=== PATIENT | female | born 1940 | race Caucasian/White ===

== ENCOUNTER → 2018-05-10 14:24 | Outpatient (BNVA) | payer MEDICARE, OTHER, SELFPAY | PROVIDERS: PCP Family Medicine; Referring Provider Nurse Practitioner Family; Visit Provider Nurse Practitioner Gerontology | DX: N39.41 Urge incontinence (principal) | CPT/HCPCS: 81003; 99204; 99215 ==

== ENCOUNTER 2018-06-12 10:00 | Outpatient (CLI) | payer MEDICARE, OTHER, SELFPAY ==
--- NOTE | 2018-06-12 09:58 | DI.RAD_ITS ---
SYMPTOMS/DIAGNOSIS: LOW BACK PAIN, ? STENOSIS LUMBAR SPINE: AP, lateral and bilateral oblique views of the lumbar spine were obtained. There are five lumbar-type vertebral bodies. There is normal alignment. No spondylolysis or spondylolisthesis is seen. There is mild disc space narrowing and endplate osteophytes at L1-L2. At L5-S1, there is a vacuum disc, and endplate osteophytes and sclerosis. There are degenerative changes of the facets seen at L4-5 and L5-S1. No acute fractures or subluxations are seen. IMPRESSION: Mild degenerative changes in the lumbar spine.
== END 2018-06-12 10:20 ==
PROVIDERS: PCP Family Medicine; Referring Provider Family Medicine; Visit Provider Student in an Organized Health Care Education/Training Program
DX: M54.5 Low back pain (principal); M51.37 Other intervertebral disc degeneration, lumbosacral region; T84.84XA Pain due to internal orthopedic prosthetic devices, implants and grafts, initial encounter; Z96.652 Presence of left artificial knee joint
CPT/HCPCS: 99204; 99214; 72110

== ENCOUNTER 2018-08-09 11:21 | Outpatient (CLI) | payer MEDICARE, OTHER, SELFPAY ==
--- NOTE | 2018-08-09 11:18 | DI.RAD_ITS ---
SYMPTOM/DIAGNOSIS: S/P LT TKA WITH PAIN LEFT KNEE: Three views. Comparison is made with 11/03/13. There are again seen post surgical changes of a left total knee replacement. No evidence of hardware failure is seen. The bones are intact and normally mineralized. There is an intramedullary elisabeth seen in the distal left femur. It is incompletely visualized. The soft tissues are unremarkable. IMPRESSION: Stable left TKR.
== END 2018-08-09 11:41 ==
PROVIDERS: PCP Family Medicine; Referring Provider Family Medicine; Visit Provider Student in an Organized Health Care Education/Training Program
DX: T84.84XD Pain due to internal orthopedic prosthetic devices, implants and grafts, subsequent encounter (principal); Z96.652 Presence of left artificial knee joint; M25.562 Pain in left knee
CPT/HCPCS: 73562; 99213; L1820

== ENCOUNTER 2018-09-15 00:37 | Outpatient (CLI) | payer MEDICARE, OTHER, SELFPAY ==
--- NOTE | 2018-09-15 10:50 | DI.NM_ITS ---
SYMPTOMS/DIAGNOSIS: PAINFUL LEFT TOTAL KNEE REPLACEMENT, T84.84XA, Z96.652, ? LOOSENING OF LEFT TKA THREE-PHASE BONE SCAN: The patient received 23.7 mCi of technetium 99m MDP and a three-phase bone scan of the left knee was obtained. Comparison x-ray is 08/09/18. There is normal radiotracer uptake in the kidneys and urinary bladder. There is a focus of increased radiotracer uptake at the anterolateral aspect of the left 4th rib. There are postsurgical changes of a left total knee replacement. No increased radiotracer uptake is seen on the first two phases in the region of the left knee. There do appear to be areas of increased radiotracer uptake in the left knee consistent with the left knee prosthesis. No findings are seen to suggest infection or loosening. There is mild symmetric increased radiotracer uptake in the shoulders, feet and wrist, which is likely degenerative. IMPRESSION: 1. No definite findings to suggest loosening or infection of the left total knee replacement. 2. Focus of increased radiotracer uptake in the upper left rib. This is nonspecific. X-ray of the left ribs should be considered for further evaluation.
== END 2018-09-15 00:57 ==
PROVIDERS: PCP Family Medicine
DX: T84.84XA Pain due to internal orthopedic prosthetic devices, implants and grafts, initial encounter (principal); Z96.652 Presence of left artificial knee joint; R93.7 Abnormal findings on diagnostic imaging of other parts of musculoskeletal system
CPT/HCPCS: 78315

== ENCOUNTER → 2018-09-27 12:44 | Outpatient (BNVA) | payer MEDICARE, OTHER, SELFPAY | PROVIDERS: PCP Family Medicine; Referring Provider Family Medicine; Visit Provider Student in an Organized Health Care Education/Training Program | DX: T84.84XD Pain due to internal orthopedic prosthetic devices, implants and grafts, subsequent encounter (principal); Z96.652 Presence of left artificial knee joint | CPT/HCPCS: 20610; 99213; J1040 ==

== ENCOUNTER → 2018-10-11 10:14 | Outpatient (BNVA) | payer MEDICARE, OTHER, SELFPAY | PROVIDERS: PCP Family Medicine; Referring Provider Family Medicine; Visit Provider Student in an Organized Health Care Education/Training Program | DX: Z96.652 Presence of left artificial knee joint (principal); T84.84XD Pain due to internal orthopedic prosthetic devices, implants and grafts, subsequent encounter | CPT/HCPCS: 99214 ==

== ENCOUNTER 2018-12-29 01:32 | Outpatient (CLI) | payer MEDICARE, OTHER, SELFPAY ==
--- NOTE | 2018-12-29 09:46 | DI.US_ITS ---
SYMPTOM/DIAGNOSIS: DYSFUNCTION OF VESTIBULAR SYSTEM, BILAT H81.93, SLURRED SPEECH, F47.81, DIZZINESS, VISUAL CHANGES, TINGLING, IMBALANCE, NUMBNESS LT LEG CAROTID ULTRASOUND: Routine examination was performed. There is mild calcific plaque seen on the right in the proximal internal carotid artery and bulb. No hemodynamically significant velocity elevations are seen on the right. The right vertebral artery is antegrade. On the left, there is moderate calcific plaque seen in the proximal internal carotid artery and carotid bulb. No hemodynamically significant velocity elevations are present on the left. The left vertebral artery is antegrade. IMPRESSION: No evidence of hemodynamically significant cervical carotid artery stenosis.
== END 2018-12-29 01:52 ==
PROVIDERS: PCP Family Medicine; Visit Provider Family Medicine
DX: R42 Dizziness and giddiness (principal); R47.81 Slurred speech; R26.89 Other abnormalities of gait and mobility; R20.0 Anesthesia of skin; R20.2 Paresthesia of skin; H81.93 Unspecified disorder of vestibular function, bilateral
CPT/HCPCS: 93880

== ENCOUNTER → 2019-03-26 09:56 | Outpatient (BNVA) | payer MEDICARE, OTHER, SELFPAY | PROVIDERS: PCP Family Medicine; Visit Provider Nurse Practitioner Gerontology | DX: R32 Unspecified urinary incontinence (principal); N32.81 Overactive bladder | CPT/HCPCS: 51798; 81003; 99213 ==

== ENCOUNTER 2019-03-30 16:14 | Outpatient (REF) | payer MEDICARE, OTHER, SELFPAY ==
[2019-03-30 18:53] LABS: HCT 41.4 % (36.0-46.0); HGB 13.6 g/dL (12.0-15.5); Mean Corp. HGB Concentration 32.9 g/dL (32.0-36.0); Mean Corpuscular Hemoglobin 30.7 pg (27.0-33.0); Mean Corpuscular Volume 93.5 fL (80-95); Mean Platelet Volume 10.2 fL (8.0-11.0); Platelet Count 340 x1000/uL (130-400); RBC 4.43 m/cumm (4.00-5.20); RBC Distribution Width 14.1 % (11.7-14.6); White Blood Cell Count 9.55 k/cumm (4.4-10.8)
[2019-03-30 19:09] LABS: ALT 25 U/L (14-59); AST 17 U/L (15-37); Albumin 3.7 g/dL (3.4-5.0); Alkaline Phosphatase 108 U/L (46-116); Anion Gap 8.5 mmol/L (3-11); BUN 14 mg/dL (7-18); Bilirubin, Total 0.1 mg/dL (0.2-1.0); CO2 26.5 mmol/L (21.0-32.0); CREATININE 0.66 mg/dL (0.55-1.02); Calcium 8.8 mg/dL (8.5-10.1); Chloride 106 mmol/L (98-107); Glucose 96 mg/dL (70-100); Potassium 4.6 mmol/L (3.5-5.1); Sodium 141 mmol/L (136-145); TSH (W/Ref FT4) 0.82 uIU/mL (0.36-3.74); Total Protein 7.1 g/dL (6.4-8.2)
== END 2019-03-30 16:34 ==
LOC: NCHCN 16:14
PROVIDERS: PCP Family Medicine; Visit Provider Family Medicine
DX: R23.8 Other skin changes (principal); M54.5 Low back pain; N32.81 Overactive bladder; M81.0 Age-related osteoporosis without current pathological fracture
CPT/HCPCS: 80053; 85027; 84443

== ENCOUNTER → 2019-06-04 10:18 | Outpatient (BNVA) | payer MEDICARE, OTHER, SELFPAY | PROVIDERS: PCP Family Medicine; Referring Provider Family Medicine; Visit Provider Nurse Practitioner Gerontology | DX: R32 Unspecified urinary incontinence (principal) | CPT/HCPCS: 51798; 99213 ==

== ENCOUNTER 2019-10-04 08:37 | Outpatient (CLI) | payer MEDICARE, OTHER, SELFPAY ==
--- NOTE | 2019-10-04 06:00 | DI.RAD_ITS ---
EXAM: XR PAIN CLINIC FLUORO JOINT IN CLINICAL HISTORY: Dx: Knee Osteoarthritis, LT GENICULAR NERVE BLOCK TECHNIQUE: Realtime digital imaging was performed. CONTRAST MATERIAL: Water soluble contrast was administered. COMPARISON: No exams were available for comparison FINDINGS: Fluoroscopy was utilized by Dr. Chicas during the performance of a left genicular nerve block. Please refer to the procedure report for complete details. Fluoro time: 40 seconds DATA REPOSITORY: RADIATION DOSE DELIVERED:
[2019-10-04 08:40] VITALS: BP 118/64; PULSE 78; RESP 18; TEMP 37.1; O2SAT 95
[2019-10-04 09:20] VITALS: PULSE 83; RESP 12; O2SAT 96
--- NOTE | 2019-10-04 09:22 | PDOC.PAIN_ITS ---
Pain Clinic Procedure Note Procedure Note Procedure Note: LEFT GENICULAR NERVE BLOCK Date of Service: October 04, 2019 Patient: RENATE BARNES Provider: Greg Chicas DO, MPH Pre-operative diagnosis: Left knee osteoarthritis Post-operative diagnosis: Left knee osteoarthritis COMMENTS: Pre-procedure VAS to the LEFT knee is 8/10. I did review her evaluation notes with Ms. Alfaro from 09/24/19. RENATE BARNES has been referred [facility] the [facility] for LEFT genicular nerve block. RENATE was interviewed and the medical record reviewed. There were no medical, pharmacologic, radiographic or other structural contraindications to attempting fluoroscopically guided LEFT genicular nerve block. Risks and potential side effects as well as potential benefit of the procedure were reviewed with RENATE , and HER voiced concerns were addressed. After I believed that the patient was completely informed, the printed consent form was signed. Standard time-out procedure was performed. RENATE was placed in the supine position on the fluoroscopy table and automated blood pressure cuff and pulse oximeter applied. The skin entry points for approaching LEFT superolateral genicular nerve, the superomedial genicular nerve and the inferomedial genicular was identified under the most advantageous fluoroscopic view and marked. Following thorough Chlorhexadine preparation of the skin and draping, 1% lidocaine infiltration of the skin entry point and subcutaneous tissues was accomplished using a 1.5 25G needle. Next, the 3.5 25G spinal needle was advanced to os at the location of the specific nerve root using fluoroscopic guidance. Next, 1 cc of 1% Lidocaine was injected at each site. The needles were removed without difficulty. RENATE's vital signs were stable throughout the procedure and were as recorded in the docflowsheet by the nursing staff. If given, dosages of intravenous drugs for anxiolysis and analgesia were documented in MAR. Follow up plans and appointments were discussed with the RENATE . Post procedure instruction was given as documented in nursing documentation and having met discharge criteria, RENATE was discharged from the [facility]. COMMENTS: No complications. Post-procedure VAS to the LEFT knee is 4/10. The patient will keep track of her LEFT knee pain over the next four hours. If RENATE has sufficient pain relief, RENATE will be a candidate for radiofrequency ablation at the same nerves. Abraham WJ1, Esther SJ, Alexis SanchezG, Krissy SanchezG, Anthony AG, Ghazala PH, Mitchel JW. Radiofrequency treatment relieves chronic knee osteoarthritis pain: a double-blind randomized controlled trial. Pain. 2011 Sep;152(3):481-7. doi: 10.1016/j.pain.2010.09.029. Alicia S1, Matthew ON2, Louann Y3, ?zl?lermiriam P2, Rk U1, Tony ?m?rl? I. Which one is more effective for the clinical treatment of chronic pain in knee osteoarthritis: radiofrequency neurotomy of the genicular nerves or intra- articular injection? Int J Rheum Dis. 2016 Mar 12. F/U with our office by phone to give us the 1-4 hour post-procedure pain log scores for the left knee. I personally performed this entire procedure. Greg Chicas DO, MPH ABP[employer] - Subspecialty Board Certification in Pain Medicine Attending Physician
[2019-10-04] MEDS: Omnipaque 240 MG/ML 50 ML BTL IJ (09:29)
[2019-10-04] MEDS: Bupivacaine 0.5% Pres-Free 10 ML VIAL IJ (09:29)
== END 2019-10-04 08:57 ==
PROVIDERS: PCP Family Medicine; Visit Provider Preventive Medicine Occupational Medicine
DX: M17.12 Unilateral primary osteoarthritis, left knee (principal)
CPT/HCPCS: 64640; 77002; Q9967

== ENCOUNTER → 2020-02-11 09:51 | Outpatient (BNVA) | payer MEDICARE, OTHER, SELFPAY | PROVIDERS: PCP Family Medicine; Referring Provider Family Medicine; Visit Provider Nurse Practitioner Gerontology | DX: R35.0 Frequency of micturition (principal); R32 Unspecified urinary incontinence | CPT/HCPCS: 99213 ==

== ENCOUNTER 2020-06-05 09:30 | Outpatient (CLI) | payer MEDICARE, OTHER, SELFPAY ==
--- NOTE | 2020-06-05 06:00 | DI.RAD_ITS ---
EXAM: XR PAIN CLINIC FLUORO JOINT IN CLINICAL HISTORY: Dx:Osteoarthritis of left knee TECHNIQUE: 2D and realtime digital imaging was performed. CONTRAST MATERIAL: Refer to procedure report. COMPARISON: No exams were available for comparison FINDINGS: Fluoroscopy was provided for Dr. Chicas during the performance of a left geniculate radiofrequency abl ation. Please refer to the procedure report for complete details. Fluoro time: 75.5 seconds IMPRESSION:
[2020-06-05 09:37] VITALS: BP 111/59; PULSE 71; RESP 16; TEMP 37.1; O2SAT 95
[2020-06-05] MEDS: Lactated Ringers 1,000 ML 80 ML IV (10:39)
[2020-06-05] MEDS: Midazolam 2 MG/2 ML VIAL IVP (10:46)
[2020-06-05] MEDS: fentaNYL 100 MCG/2 ML VIAL IVP (10:46)
[2020-06-05 11:15] VITALS: BP 142/70; PULSE 67; RESP 20; O2SAT 97
--- NOTE | 2020-06-05 11:20 | PDOC.PAIN_ITS ---
Pain Clinic Procedure Note Procedure Note Procedure Note: {RIGHT / LEFT:29299} GENICULAR NERVE RADIOFREQUENCY ABLATION WITH THE COOLIEF MACHINE Date of Service: June 05, 2020 Patient: RENATE BARNES Provider: Greg Chicas DO, MPH Pre-operative diagnosis: Left knee osteoarthritis Post-operative diagnosis: Same COMMENTS: Previous Genicular nerve blocks to the LEFT knee. RENATE BARNES has been referred to the [facility] for LEFT genicular nerve radiofrequency ablation. RENATE was interviewed and the medical record reviewed. There were no medical, pharmacologic, radiographic or other structural contraindications to attempting fluoroscopically guided LEFT genicular nerve radiofrequency ablation. Risks and potential side effects as well as potential benefit of the procedure were reviewed with RENATE BARNES , and HER voiced concerns were addressed. After I believed that the patient was completely informed, the printed consent form was signed. Standard time-out procedure was performed. RENATE was placed in the supine position on the fluoroscopy table and automated blood pressure cuff and pulse oximeter applied. The skin entry points for approaching LEFT superolateral genicular nerve, the suprapatellar genicular nerve, the superomedial genicular nerve and the inferomedial genicular was identified under the most advantageous fluoroscopic view and marked. Following thorough Chlorhexadine preparation of the skin and draping, 1% lidocaine infiltration of the skin entry point and subcutaneous tissues was accomplished using a 1.5 25G needle. Next, the 10 cm 18G RF Cannula with a 10 mm active tip was advanced to os at the location of the specific nerve roots (3) using fluoroscopic guidance. Next, sensory and motor testing was performed and no abnormal findings were found. Next, 1 cc of 2% Lidocaine was injected at each site. The lesion was then created with 80 degrees C for 90 seconds. Each needle was advance 1 cm and the lesion was completed again. Each cannula was advanced until the tip reached the posterior aspect of the bone shaft. 1/4 cc of Depomedrol (40 mg/cc) was then injected at each site followed by 2 cc of 0.5% Bupivacaine as the needle was withdrawn. The needles were removed without difficulty. RENATE's vital signs were stable throughout the procedure and were as recorded in the docflowsheet by the nursing staff. If given, dosages of intravenous drugs for anxiolysis and analgesia were documented in MAR. Follow up plans and appointments were discussed with the RENATE BARNES . Post procedure instruction was given as documented in nursing documentation and having met discharge criteria, RENATE was discharged from the [facility]. COMMENTS: No complications. Abraham WJ1, Esther SJ, Alexis JG, Krissy SanchezG, Anthony AG, Ghazala PH, Mitchel JW. Radiofrequency treatment relieves chronic knee osteoarthritis pain: a double-blind randomized controlled trial. Pain. 2010;152(3):481-7. doi: 10.1016/j.pain.2010.09.029. Alicia S1, Matthew ON2, Louann Y3, ?zl?lerden P2, Rk U1, Tony ?m?rl? I. Which one is more effective for the clinical treatment of chronic pain in knee osteoarthritis: radiofrequency neurotomy of the genicular nerves or intra- articular injection? Int J Rheum Dis. 2016 Mar 12. F/U with our office as needed. I personally performed this entire procedure. Greg Chicas DO, MPH ABP[employer] - Subspecialty Board Certification in Pain Medicine Attending Physician
[2020-06-05] MEDS: Bupivacaine 0.5% Pres-Free 10 ML VIAL IJ (11:48)
[2020-06-05] MEDS: methylPREDNISolone ACETATE 40 MG/ML VIAL IJ (11:48)
[2020-06-05] MEDS: Lidocaine 2% Pres-Free 5 ML VIAL IJ (11:48)
== END 2020-06-05 09:50 ==
PROVIDERS: PCP Family Medicine; Visit Provider Preventive Medicine Occupational Medicine
DX: M17.12 Unilateral primary osteoarthritis, left knee (principal); M25.562 Pain in left knee
CPT/HCPCS: 64624; 77002; J1030; J2250; J3010

== ENCOUNTER → 2020-06-24 09:59 | Outpatient (BNVA) | payer MEDICARE, OTHER, SELFPAY | PROVIDERS: PCP Family Medicine; Referring Provider Family Medicine; Visit Provider Nurse Practitioner Gerontology | DX: R30.0 Dysuria (principal); R32 Unspecified urinary incontinence | CPT/HCPCS: 99213 ==

== ENCOUNTER → 2020-07-17 14:19 | Outpatient (BNVA) | payer MEDICARE, OTHER, SELFPAY | PROVIDERS: PCP Family Medicine; Referring Provider Family Medicine; Visit Provider Nurse Practitioner Gerontology | DX: N39.498 Other specified urinary incontinence (principal) | CPT/HCPCS: 81003; 99213 ==

== ENCOUNTER → 2021-01-01 15:14 | Outpatient (BNVA) | payer MEDICARE, OTHER, SELFPAY | PROVIDERS: PCP Family Medicine; Referring Provider Family Medicine; Visit Provider Nurse Practitioner Gerontology | DX: R35.0 Frequency of micturition (principal); R32 Unspecified urinary incontinence; Z79.899 Other long term (current) drug therapy | CPT/HCPCS: 99214 ==

== ENCOUNTER 2021-01-08 20:36 | Outpatient (REF) | payer MEDICARE, OTHER, SELFPAY ==
[2021-01-08 21:57] LABS: Bilirubin Negative (Negative); Blood Negative (Negative); Clarity Clear (Clear); Glucose Negative (Negative); Ketones Negative (Negative); Leukocyte Esterase Negative (Negative); Nitrite Negative (Negative); Specific Gravity 1.025 (1.005-1.025); Urobilinogen 0.2 EU/dL (Up TO 0.2)
== END 2021-01-08 20:37 | disposition home or self-care (01) ==
LOC: LBN 20:36
PROVIDERS: PCP Family Medicine; Visit Provider Nurse Practitioner Gerontology
DX: N39.3 Stress incontinence (female) (male) (principal); R35.0 Frequency of micturition
CPT/HCPCS: 81003; 87086

== ENCOUNTER → 2021-03-30 11:57 | Outpatient (BNVA) | payer MEDICARE, OTHER, SELFPAY | PROVIDERS: PCP Family Medicine; Referring Provider Family Medicine; Visit Provider Urology | DX: R69 Illness, unspecified (principal) ==

== ENCOUNTER 2021-03-31 14:37 | Outpatient (REF) | payer MEDICARE, OTHER, SELFPAY | END 2021-03-31 14:38 | disposition home or self-care (01) | LOC: LBN 14:37 | PROVIDERS: PCP Family Medicine; Visit Provider Urology | DX: N39.46 Mixed incontinence (principal) | CPT/HCPCS: 87086 ==

== ENCOUNTER 2021-05-06 01:30 | Outpatient (CLI) | payer MEDICARE, OTHER, SELFPAY ==
--- NOTE | 2021-05-06 07:30 | DI.US_ITS ---
Exam(s) US PELVIS TRANSVAGINAL EXAM: US PELVIS TRANSVAGINAL CLINICAL HISTORY: pelvic pressure and pain,R10.2. TECHNIQUE: Transabdominal and transvaginal pelvic ultrasound was performed using standard protocol. COMPARISON: MR MRI LUMBAR WO from 06/19/2018 MR MRI LUMBAR WO from 06/19/2018 FINDINGS: KIDNEYS: Kidneys are symmetric in size. No evidence of renal calculi. No evidence of hydronephrosis. There is a 2.5 x 2.0 x 2.5 cm simple cyst in the superior pole of the left kidney. This is stable co mpared to the MRI of the lumbar spine from 06/19/2018. No follow-up is recommended. UTERUS: Position: Anteverted. Size: 4.2 long by 2.1 AP by 2.9 transverse cm Endometrium: Less than 0.3 cm. There is a small amount of fluid seen within the endometrial canal. Myometrium: Unremarkable. Cervix: Unremarkable. OVARIES: Right: 1.6 x 1.1 x 1.5 cm Cyst or mass: None. Left: 1.4 x 0.7 x 1.5 cm Cyst or mass: None. CUL-DE-SAC: Free fluid: None. Other: None. IMPRESSION: 1. Normal sonographic appearance of the kidneys. 2. Small amount of fluid seen within the endometrial canal. Otherwise unremarkable uterus. 3. Unremarkable bilateral ovaries. DATA REPOSITORY:
== END 2021-05-06 01:50 ==
PROVIDERS: PCP Family Medicine; Visit Provider Obstetrics & Gynecology Gynecology
DX: R10.2 Pelvic and perineal pain (principal)
CPT/HCPCS: 76830; 76856

== ENCOUNTER 2021-08-25 21:07 | Outpatient (REF) | payer MEDICARE, OTHER, SELFPAY ==
[2021-08-25 21:55] LABS: Abs Immature Grans 0.01 10^3/uL (0.0-0.06); Absolute Basophil Count 0.08 10^3/uL (0.0-0.2); Absolute Lymphocyte Count 2.64 10^3/uL (1.2-3.4); Absolute Monocyte Count 0.61 10^3/uL (0.1-0.8); Absolute Neutrophil Count 3.48 10^3/uL (1.2-6.7); Basophils % 1.1; Eosinophils % 8.1; HCT 42.8 % (36.0-46.0); HGB 13.5 g/dL (11.2-15.7); Immature Grans % 0.1; Lymphocytes % 35.6; MCH 30.3 pg (27.0-33.0); MCHC 31.5 % (32.0-36.0); MPV 10.4 fL (8.0-11.0); Monocytes % 8.2; Neutrophils % 46.9; Nucleated RBC 0 %; Platelet Count 309 10^3/uL (130-400); RBC 4.46 10^6/uL (3.93-5.22); RDW 14.3 % (11.7-14.6); RDW-SD 50.5 fL; WBC 7.42 10^3/uL (4.4-10.8)
[2021-08-25 22:14] LABS: ALT 18 U/L (14-59); AST 15 U/L (15-37); Albumin 3.7 g/dL (3.4-5.0); Alkaline Phosphatase 79 U/L (46-116); Anion Gap 9.1 mmol/L (3-11); BUN 12 mg/dL (7-18); Bilirubin, Total 0.3 mg/dL (0.2-1.0); CO2 26.9 mmol/L (21.0-32.0); CREATININE 0.7 mg/dL (0.55-1.02); Chloride 106 mmol/L (98-107); Glucose 80 mg/dL (74-106); Potassium 4.8 mmol/L (3.5-5.1); Sodium 142 mmol/L (136-145); Total Protein 7.1 g/dL (6.4-8.2)
== END 2021-08-25 21:08 | disposition home or self-care (01) ==
LOC: LBN 21:07
PROVIDERS: PCP Family Medicine; Visit Provider Internal Medicine Rheumatology
DX: Z79.899 Other long term (current) drug therapy (principal)
CPT/HCPCS: 80053; 85025

== ENCOUNTER 2021-11-26 19:26 | Outpatient (REF) | payer MEDICARE, OTHER, SELFPAY ==
[2021-11-28 10:30] LABS: COVID-19 RT-PCR UVMMC Result Negative (Negative)
== END 2021-11-26 19:27 | disposition home or self-care (01) ==
LOC: LBN 19:26
PROVIDERS: PCP Family Medicine; Visit Provider Physician Assistant Medical
DX: Z20.822 Contact with and (suspected) exposure to COVID-19 (principal); R09.89 Other specified symptoms and signs involving the circulatory and respiratory systems
CPT/HCPCS: U0003; U0005

== ENCOUNTER 2022-02-09 10:53 | Emergency (ER) | payer MEDICARE, OTHER, SELFPAY ==
[2022-02-09 11:09] VITALS: BP 124/47; PULSE 71; RESP 18; TEMP 36.4; O2SAT 94
--- NOTE | 2022-02-09 12:30 | DI.CT_ITS ---
Exam(s) CT LUMBAR SPINE WO EXAM: CT LUMBAR SPINE WO CLINICAL HISTORY: fall pain. TECHNIQUE: Imaging Protocol: Axial computed tomography images with coronal and sagittal reformatted images were created and reviewed. COMPARISON: CR XR lumbar spine complete from 06/12/2018 MR MRI LUMBAR WO from 06/19/2018 FINDINGS: Bones: There is an acute nondisplaced fracture involving the left sacral ala. The fracture does not appear to extend into the sacroiliac joint. No other acute fracture or subluxation is seen. There i s an old L4 vertebral body fracture with vertebroplasty. The bones are osteopenic. No spondylolysis or spondylolisthesis is seen. Mild degenerative changes are seen throughout the lumbar spine. Ther e is an orthopedic screw incompletely visualized in the left femur. Soft tissues: Emphysematous changes are seen in the lung bases. There is a stable left renal cyst. This was present on an MRI of the lumbar spine from 06/19/2018. No large disk herniations are identif ied. IMPRESSION: 1. Acute nondisplaced fracture of the left sacral ala. 2. Results of this exam have been verbally communicated with provider. RADIATION DOSE DELIVERED: 583.98mGy.cm Total DLP 583.98mGy.cm Total DLP DATA REPOSITORY: All CT scans at this facility are submitted to the National Radiology Data Registry (NRDR) Dose Index Registry (DIR) with the [employer] ([employer]). RADIATION OPTIMIZATION: All CT scans at this facility use at least one of these dose optimization te chniques: automated exposure control; mA and/or kV adjustment per patient size (includes targeted exa ms where dose is matched to clinical indication); or iterative reconstruction.
--- NOTE | 2022-02-09 12:30 | DI.RAD_ITS ---
Exam(s) XR PELVIS AP XR FEMUR LT EXAM: XR PELVIS AP and XR femur LT CLINICAL HISTORY: left pelvis and leg pain post fall. TECHNIQUE: 2D digital imaging was performed. Five images were obtained. COMPARISON: CT ABD PELVIS WITH CONTRAST from 04/10/2012 CR XR lumbar spine complete from 06/12/2018 FINDINGS: BONES: There is an acute nondisplaced fracture involving the left inferior pubic ramus. There is an intramedullary elisabeth and screw in the proximal left femur. The patient has a left total knee replaceme nt which is incompletely imaged. No bony destructive lesion is seen. JOINTS: No dislocation present. No joint space narrowing is present. SOFT TISSUE: Normal. IMPRESSION: 1. Nondisplaced acute fracture involving the left inferior pubic ramus. 2. Results of this exam have been verbally communicated with provider. DATA REPOSITORY: RADIATION DOSE DELIVERED:
[2022-02-09] MEDS: oxyCODONE 5 MG TAB PO (12:42)
--- NOTE | 2022-02-09 14:30 | ED.GENADUL_ITS ---
Discharge Plan Disposition Patient Disposition: HOME Condition: Stable Discharge Details Clinical Impression: Closed fracture of pubic ramus, Fracture of sacrum Primary Care Provider: Warren Yadav ED Provider: Tereza Bonds Home Meds and New Rx's Prescriptions: New oxycodone 5 mg capsule 5 mg PO Q8H PRNQty: 10 0RF Continued clonazepam 0.5 mg tablet 0.5 mg PO DAILY PRN Label Comments: pt reports taking daily (1 tab) tolterodine [Detrol LA] 4 mg capsule,extended release 24hr 4 mg PO DAILY Qty: 60 6RF alendronate 70 mg Tablet See Rx Instructions .ROUTE .COMPLEX Label Comments: Once weekly Rx Instructions: 70 mg orally ondansetron HCl 4 mg Tablet 4 mg PO Q6H PRN trazodone 150 mg Tablet 150 mg PO HS duloxetine 60 mg Capsule,Delayed Release(Dr/Ec) 60 mg PO DAILY calcium carbonate [Calcium 500] 500 mg calcium (1,250 mg) tablet 1,000 mg PO DAILY cholecalciferol (vitamin D3) 125 mcg (5,000 unit) tablet 5,000 unit PO DAILY Label Comments: pt unsure of dose simvastatin 20 mg tablet 20 mg PO DAILY omeprazole 20 MG capsule,delayed release(DR/EC) 20 mg PO QAM Label Comments: 07/19/17 PCP RECORD STATES 20 MG BID. ascorbic acid (vitamin C) [Vitamin C] 500 mg tablet 500 mg PO DAILY PRN Discharge Instructions Additional Instructions: Use a walker with ambulation Take the oxycodone sparingly, this medication is addictive and will make you constipated follow-up with pcp this week tylenol 650 mg every 4 hours return earlier with new or worsening complaints Referrals: Warren Yadav [Primary Care Provider] - Discharge Data Discharge Date/Time-TO BE ENTERED AT DEPARTURE: 02/09/22 15:55 Medical Decision Making sacral ala fracture and inferior pubic ramus fx lumbar spine CT without acute abnormality per radiology interpretation discussed with Dr. Naidu Ambulatory with antalgic but steady gait, walker knee brace, hinged placed left knee pain secondary to baseline instability with prior surgery Case reviewed with Dr. Mcdaniel, weightbearing with walker Return precautions discussed and patient expressed understanding pain medications with risk of addiction reviewed Discharged home in the care of her , patient feels comfortable discharge home at this Medical Records Medical records reviewed: Yes I reviewed the patient's medical records. HPI General Date/Time Provider Initiated Documentation: 02/09/22 11:01 . HPI Narrative: this 82 you female with hx of femur fx and osteoporosis present s/p slip and fall in bathroom just captain room service. states has pain in her left hip and pelvis. denies any additional injuries. took tylenol captain room service without relief. denies sensation changes. reports mechanical fall. Related Data Home Medications Medication Instructions Recorded Confirmed omeprazole 20 mg capsule,delayed 20 mg PO QAM 06/20/13 01/21/22 release alendronate 70 mg tablet See Rx Instructions .Route .COMPLEX 09/14/19 01/21/22 duloxetine 60 mg capsule,delayed 60 mg PO DAILY 09/14/19 01/21/22 release ondansetron HCl 4 mg tablet 4 mg PO Q6H PRN 09/14/19 01/21/22 trazodone 150 mg tablet 150 mg PO HS 09/14/19 01/21/22 ascorbic acid (vitamin C) 500 mg 500 mg PO DAILY PRN 05/15/21 01/21/22 tablet (Vitamin C) calcium carbonate 500 mg calcium 1,000 mg PO DAILY 05/15/21 01/21/22 (1,250 mg) tablet (Calcium 500) cholecalciferol (vitamin D3) 125 5,000 unit PO DAILY 05/15/21 01/21/22 mcg (5,000 unit) tablet clonazepam 0.5 mg tablet 0.5 mg PO DAILY PRN 05/15/21 01/21/22 simvastatin 20 mg tablet 20 mg PO DAILY 05/15/21 01/21/22 tolterodine 4 mg capsule,extended 4 mg PO DAILY #60 caps 05/15/21 01/21/22 release 24 hr (Detrol LA) oxycodone 5 mg capsule 5 mg PO Q8H PRN #10 caps 02/09/22 Previous Rx's Medication Instructions Recorded tolterodine 4 mg capsule,extended 4 mg PO DAILY #60 caps 05/15/21 release 24 hr (Detrol LA) oxycodone 5 mg capsule 5 mg PO Q8H PRN #10 caps 02/09/22 Allergies Allergy/AdvReac Type Severity Reaction Status Date / Time azithromycin Allergy Severe Verified 01/21/22 14:08 fluoxetine HCl [From Prozac] Allergy Intermediate Skin Rash Verified 01/21/22 14:08 tramadol Allergy Intermediate Skin Rash Verified 01/21/22 14:08 ciprofloxacin [From Cipro] Allergy Mild Verified 01/21/22 14:08 ciprofloxacin HCl AdvReac Intermediate Diarrhea Verified 01/21/22 14:08 [From Cipro] codeine AdvReac Intermediate GI UPSET Verified 01/21/22 14:08 metaxalone [From Skelaxin] AdvReac Intermediate GI UPSET Verified 01/21/22 14:08 Metronidazole HCl AdvReac Intermediate Diarrhea Verified 01/21/22 14:08 [From Flagyl] pregabalin [From Lyrica] AdvReac Intermediate FOGGY BRAIN Verified 01/21/22 14:08 propranolol HCl AdvReac Intermediate VOMITING Verified 01/21/22 14:08 [From Inderal LA] venlafaxine HCl AdvReac Intermediate GI UPSET Verified 01/21/22 14:08 [From Effexor] gabapentin [From Neurontin] AdvReac Mild SLEEPY Verified 01/21/22 14:08 ibuprofen AdvReac Mild heart burn Verified 01/21/22 14:08 SAVILLA Allergy Mild Bad Uncoded 01/21/22 14:08 headaches General Stated Complaint: Orthopedic RYNE: 3 Review of Systems All systems reviewed & are unremarkable except as noted in HPI and below PFSH All Active Problems (Updated 02/09/22 @ 15:26 by PAULINE Levy) Closed fracture of pubic ramus (Acute) Fracture of sacrum (Acute) Urinary urgency (Acute) improvement in sx with 2mg Detrol LA. 05/26/21. Will increased dose to 4mg/day Pelvic pressure in female (Acute) Sensation of fullness in right ear (Acute) Vertigo (Acute) Referred otalgia of right ear (Acute) Painful total knee replacement, left (Acute) Urinary incontinence (Acute) 04/2021. improved with Detrol LA. Stomach problems (Acute 02/07/15) Sensorineural hearing loss, bilateral (Acute 10/04/16) Osteoporosis (Acute 07/10/15) Lumbar T Score - 3.1, Hip T- Score -2.6 Mood disorder (Acute 02/07/15) Hyperlipidemia (Acute 02/07/15) Female stress incontinence (Acute 02/10/16) daily mild sx. Disequilibrium (Acute 10/04/16) Chronic joint pain (Acute 02/07/15) Fibromyalgia (Chronic) GERD (gastroesophageal reflux disease) (Chronic) Mostly controlled with Omeprazole with rare antacid use. Hyperlipidemia (Chronic) Sleep disturbance (Chronic) Uses Trazodone nightly. Encounter for rehabilitation (Acute 09/07/13) Medical History (Updated 02/09/22 @ 15:26 by PAULINE Levy) Actinic keratosis Acute bilateral low back pain Age related osteoporosis 2014 Lumbar spine T score - 3.1. Total hip - 2.6 Anxiety associated with depression Arthritis Bilateral thumb pain Chronic joint pain no imoprovement with Gabapentin or Lyrica. PCP manages Hydrocodone Rx. [place] [facility] [place] [facility] [place] Chronic left SI joint pain DDD (degenerative disc disease) Dry eye syndrome Easy bruising Female stress incontinence mild daily sx. Hearing loss, bilateral Hiatal hernia Hyperlipidemia Stopped Simvistatin Lumbar back pain Mood disorder Trazadone for sleep, Zoloft and Clonazepam Overactive bladder Palpitations Panic disorder Pes anserinus bursitis Slurred speech Spinal stenosis Stomach problems takes PPI Swelling of left hand Thoracic back pain Tinea corporis Tinnitus, bilateral Trochanteric bursitis Vitamin D deficiency Weakness of both legs Surgical History Arthroplasty of knee (08/23/13) L knee arthroscopy. Colonoscopy - IV Sedation 2011 with endoscopy Excision, Neuroma 2004 L foot. 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 [place] Female Reproductive History Menstrual Menopause type: natural History History 1 Para 0 Hx # Term Pregnancies Multiple births Hx # Pregnancies Ectopic pregnancies AB induced Hx Number of Living Children AB spontaneous Exam Const General: cooperative, comfortable and no acute distress Orientation: alert and oriented x3 HENMT Head: normal to inspection and no palpable skull fracture Mouth: oral mucosae normal Eyes Pupils: PERRL Neck Other: No midline tenderness Resp Effort & Inspection: normal respiratory effort Cardio Rate: regular rate Rhythm: regular rhythm GI Inspection: normal to inspection Other: Nontender abdominal exam Skin General skin exam: no rashes or lesions noted Full body images: 1. Tenderness with palpation, no visible signs of trauma Neuro General: patient alert and patient oriented x3 Other: Strength and sensation intact Extrem Other: Distal pulses intact Course Vital Signs Vital signs: Vital Signs Temperature 36.4 C L 02/09/22 11:09 Pulse 71 02/09/22 11:09 Respiratory Rate 18 02/09/22 11:09 Blood Pressure 124/47 L 02/09/22 11:09 Pulse Oximetry 94 02/09/22 11:09 Temperature 36.4 C L 02/09/22 11:09 Temperature Source Temporal Artery Scan 02/09/22 11:09 Pulse 71 02/09/22 11:09 Respiratory Rate 18 02/09/22 11:09 Respiratory Effort Non-Labored 02/09/22 12:27 Blood Pressure 124/47 L 02/09/22 11:09 Blood Pressure Position Sitting 02/09/22 11:09 Pulse Oximetry 94 02/09/22 11:09 Oxygen Delivery Method Room Air 02/09/22 11:09 Oxygen Flow Rate 0 02/09/22 11:09
[2022-02-09 16:02] VITALS: BP 131/66; PULSE 76; RESP 18; TEMP 36.8; O2SAT 92
== END 2022-02-09 15:55 | disposition home or self-care (01) ==
PROVIDERS: Emergency Provider Physician Assistant; PCP Family Medicine
DX: S32.592A Other specified fracture of left pubis, initial encounter for closed fracture (principal); S32.10XA Unspecified fracture of sacrum, initial encounter for closed fracture; Z87.891 Personal history of nicotine dependence; W01.0XXA Fall on same level from slipping, tripping and stumbling without subsequent striking against object, initial encounter; Y92.89 Other specified places as the place of occurrence of the external cause
CPT/HCPCS: 73552; 99284; 72131; 72170

== ENCOUNTER 2022-03-24 16:33 | Outpatient (REF) | payer MEDICARE, OTHER, SELFPAY | END 2022-03-24 16:34 | disposition home or self-care (01) | LOC: LBN 16:33 | PROVIDERS: PCP Family Medicine; Visit Provider Obstetrics & Gynecology Gynecology | DX: R30.0 Dysuria (principal) | CPT/HCPCS: 87077; 87086; 87186 ==

== ENCOUNTER 2022-04-29 17:18 | Outpatient (REF) | payer MEDICARE, OTHER, SELFPAY | END 2022-04-29 17:19 | disposition home or self-care (01) | LOC: LBN 17:18 | PROVIDERS: PCP Family Medicine; Visit Provider Obstetrics & Gynecology Gynecology | DX: N39.3 Stress incontinence (female) (male) (principal); R39.15 Urgency of urination; Z87.440 Personal history of urinary (tract) infections | CPT/HCPCS: 87086 ==

== ENCOUNTER → 2022-06-29 12:37 | Outpatient (BNVA) | payer MEDICARE, OTHER, SELFPAY | PROVIDERS: PCP Family Medicine; Referring Provider Family Medicine; Visit Provider Urology | DX: N39.41 Urge incontinence (principal); Z87.440 Personal history of urinary (tract) infections | CPT/HCPCS: 99214 ==

== ENCOUNTER → 2023-02-07 12:48 | Outpatient (BNVA) | payer MEDICARE, SELFPAY | PROVIDERS: PCP Family Medicine; Referring Provider Family Medicine; Visit Provider Nurse Practitioner Gerontology | DX: R39.15 Urgency of urination (principal); N39.3 Stress incontinence (female) (male) | CPT/HCPCS: 81003; 99213 ==

== ENCOUNTER 2023-02-07 13:50 | Outpatient (REF) | payer MEDICARE, SELFPAY | END 2023-02-07 13:51 | disposition home or self-care (01) | LOC: LBN 13:50 | PROVIDERS: PCP Family Medicine; Visit Provider Nurse Practitioner Gerontology | DX: R82.998 Other abnormal findings in urine (principal); N39.3 Stress incontinence (female) (male); Z87.440 Personal history of urinary (tract) infections | CPT/HCPCS: 87077; 87086; 87186 ==

== ENCOUNTER 2023-03-07 10:49 | Outpatient (REF) | payer MEDICARE, SELFPAY ==
[2023-03-07 10:28] LABS: Bilirubin Negative (Negative); Blood Negative (Negative); Clarity Clear (Clear); Glucose Negative (Negative); Ketones Negative (Negative); Leukocyte Esterase Negative (Negative); Nitrite Negative (Negative); Urobilinogen 0.2 mg/dL (Up to 0.2); pH 6.5 (5-8)
== END 2023-03-07 10:50 | disposition home or self-care (01) ==
LOC: LBN 10:49
PROVIDERS: PCP Family Medicine; Visit Provider Nurse Practitioner Gerontology
DX: N39.3 Stress incontinence (female) (male) (principal); Z87.440 Personal history of urinary (tract) infections
CPT/HCPCS: 81003; 87086

== ENCOUNTER → 2023-03-22 15:22 | Outpatient (BNVA) | payer MEDICARE, SELFPAY | PROVIDERS: PCP Family Medicine; Referring Provider Family Medicine; Visit Provider Urology | DX: N39.41 Urge incontinence (principal) | CPT/HCPCS: 99214 ==

== ENCOUNTER → 2023-05-02 12:52 | Outpatient (BNVA) | payer MEDICARE, SELFPAY | PROVIDERS: PCP Family Medicine; Referring Provider Family Medicine; Visit Provider Student in an Organized Health Care Education/Training Program | DX: J98.4 Other disorders of lung (principal); Z87.891 Personal history of nicotine dependence | CPT/HCPCS: 99205; 99215 ==

== ENCOUNTER → 2023-05-25 09:30 | Outpatient (BNVA) | payer MEDICARE, SELFPAY | PROVIDERS: PCP Family Medicine; Referring Provider Family Medicine; Visit Provider Nurse Practitioner Gerontology | DX: R39.15 Urgency of urination (principal); Z87.440 Personal history of urinary (tract) infections | CPT/HCPCS: 99442 ==

== ENCOUNTER 2023-06-30 08:01 | Day surgery (SDC) | payer MEDICARE, SELFPAY ==
--- NOTE | 2023-06-30 08:12 | W.PM.HP.N ---
Date of service: 06/30/23 Time of Service: 08:20 Assessment and Plan Assessment and plan (1) Urinary incontinence: Status: Acute Qualifiers: Urinary Incontinence type: urge incontinence Qualified Code(s): N39.41 - Urge incontinence (2) Urinary urgency: Status: Acute Assessment and plan: This patient has urinary incontinence related to an overactive bladder. She presents for cystoscopy with an injection of Botox into the detrusor muscle. History of Present Illness History of Present Illness Chief Complaint: Urgency incontinence due to overactive bladder Narrative: This is an 83-year-old woman who has a history of mixed urinary incontinence. She has failed medical management with anticholinergics and beta 3 agonists. She has not had any neuromodulation to date. She is bothered by urinary frequency, urgency and urgency incontinence. Her mobility is compromised and she describes falls when she tries to get to the restroom. She does have some leakage when she coughs or sneezes, but she tells me this is a minor component of her leakage. Review of Systems Narrative: No fevers or chills Meniere's disease. Decreased hearing acuity. No diabetes or thyroid dysfunction No shortness of breath, cough or hemoptysis No chest pain or palpitations GERD. No hepatitis, ulcers, jaundice No seizures, strokes or peripheral neuropathy No bleeding disorders or anemia Chronic pain. No gout PFSH All Active Problems Diplopia (Acute) Imbalance (Acute) Cystic-bullous disease of lung (Acute) Chronic pain syndrome (Chronic) Vaginitis and vulvovaginitis (Acute) Hx: UTI (urinary tract infection) (Acute) 05/03/22. Daily suppression with antibiotic not effective. Menieres disease (Acute) Dysuria (Acute) Urinary urgency (Acute) improvement in sx with 2mg Detrol LA. 05/26/21. Will increased dose to 4mg/day Pelvic pressure in female (Acute) Sensation of fullness in right ear (Acute) Vertigo (Acute) Referred otalgia of right ear (Acute) Painful total knee replacement, left (Acute) Urinary incontinence (Acute) 04/2021. improved with Detrol LA. Stomach problems (Acute 02/07/15) Sensorineural hearing loss, bilateral (Acute 10/04/16) Osteoporosis (Acute 07/10/15) Lumbar T Score - 3.1, Hip T- Score -2.6 Mood disorder (Acute 02/07/15) Hyperlipidemia (Acute 02/07/15) Female stress incontinence (Acute 02/10/16) 2016 daily mild sx. 05/2022. frequent daily urine loss also unprovoked Disequilibrium (Acute 10/04/16) Chronic joint pain (Acute 02/07/15) Encounter for rehabilitation (Acute 09/07/13) Sleep disturbance (Chronic) Uses Trazodone nightly. Hyperlipidemia (Chronic) GERD (gastroesophageal reflux disease) (Chronic) Mostly controlled with Omeprazole with rare antacid use. Fibromyalgia (Chronic) Medical History Vestibular dysfunction Insomnia Hypokalemia Prediabetes Seasonal allergic rhinitis History of TB skin testing Constipation Common peroneal neuropathy Dry mouth Lymphangioleiomyomatosis Lung nodule Anxiety associated with depression Hiatal hernia Spinal stenosis Trochanteric bursitis Vitamin D deficiency Tinea corporis Lumbar back pain Dry eye syndrome Panic disorder Hearing loss, bilateral Tinnitus, bilateral DDD (degenerative disc disease) Thoracic back pain Chronic left SI joint pain Weakness of both legs Palpitations pt. denies Slurred speech Arthritis Actinic keratosis Swelling of left hand Pes anserinus bursitis Bilateral thumb pain Acute bilateral low back pain Overactive bladder Easy bruising Chronic joint pain no imoprovement with Gabapentin or Lyrica. PCP manages Hydrocodone Rx. [place] [facility] [place] Mood disorder Trazadone for sleep, Zoloft and Clonazepam Hyperlipidemia Stopped Simvistatin Age related osteoporosis 2015 Lumbar spine T score - 3.1. Total hip - 2.6 Female stress incontinence mild daily sx. Stomach problems takes PPI Surgical History History of tonsillectomy and adenoidectomy piriformis release 2002 Replacement of total knee joint (09/03/13) left Rotator Cuff Repair 2006 Excision, Neuroma 2004 L foot. Colonoscopy - IV Sedation 2011 with endoscopy Arthroplasty of knee (08/23/13) L knee arthroscopy. 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 What type of physical activity do you participate in: additional Details: needs rolling walker to assist her with ambulation Special julianna needs: No Do you feel safe at home: Yes Do you feel safe in your relationship?: Yes Female Reproductive History Menstrual Menopause type: natural History History 1 Para 0 Hx # Term Pregnancies Multiple births Hx # Pregnancies Ectopic pregnancies AB induced Hx Number of Living Children AB spontaneous Meds Allergies and Home Medications Allergies Allergy/AdvReac Type Severity Reaction Status Date / Time azithromycin Allergy Severe unknown Verified 06/30/23 08:09 fluoxetine HCl [From Prozac] Allergy Intermediate Skin Rash Verified 06/30/23 08:09 tramadol Allergy Intermediate Skin Rash Verified 06/30/23 08:09 ciprofloxacin [From Cipro] Allergy Mild unknown Verified 06/30/23 08:09 cephalexin [From Keflex] Allergy reported Verified 06/30/23 08:09 by her pharmacy ciprofloxacin HCl AdvReac Intermediate Diarrhea Verified 06/30/23 08:09 [From Cipro] codeine AdvReac Intermediate GI UPSET Verified 06/30/23 08:09 metaxalone [From Skelaxin] AdvReac Intermediate GI UPSET Verified 06/30/23 08:09 Metronidazole HCl AdvReac Intermediate Diarrhea Verified 06/30/23 08:09 [From Flagyl] pregabalin [From Lyrica] AdvReac Intermediate FOGGY BRAIN Verified 06/30/23 08:09 propranolol HCl AdvReac Intermediate VOMITING Verified 06/30/23 08:09 [From Inderal LA] venlafaxine HCl AdvReac Intermediate GI UPSET Verified 06/30/23 08:09 [From Effexor] gabapentin [From Neurontin] AdvReac Mild SLEEPY Verified 06/30/23 08:09 ibuprofen AdvReac Mild heart burn Verified 06/30/23 08:09 sulfamethoxazole AdvReac nausea, Verified 06/30/23 08:09 [From Bactrim] vomiting, diarrhea trimethoprim [From Bactrim] AdvReac nausea, Verified 06/30/23 08:09 vomiting, diarrhea SAVILLA Allergy Mild Bad Uncoded 06/30/23 08:09 headaches Home Medications Medication Instructions Recorded Confirmed Type omeprazole 20 mg capsule,delayed 20 mg PO QAM 06/20/13 06/30/23 History release alendronate 70 mg tablet See Rx Instructions .Route .COMPLEX 09/14/19 06/30/23 History duloxetine 60 mg capsule,delayed 60 mg PO DAILY 09/14/19 06/30/23 History release ondansetron HCl 4 mg tablet 4 mg PO Q6H PRN 09/14/19 06/30/23 History calcium carbonate 500 mg calcium 1,000 mg PO DAILY 05/15/21 06/30/23 History (1,250 mg) tablet (Calcium 500) cholecalciferol (vitamin D3) 125 5,000 unit PO DAILY 05/15/21 06/30/23 History mcg (5,000 unit) tablet clonazepam 0.5 mg tablet 0.5 mg PO DAILY PRN 05/15/21 06/30/23 History simvastatin 20 mg tablet 20 mg PO DAILY 05/15/21 06/30/23 History prochlorperazine maleate 5 mg 5 mg PO TID PRN 04/21/22 06/30/23 History tablet (Compazine) meclizine 12.5 mg tablet 12.5 mg PO TID PRN 11/18/22 06/30/23 History sennosides 8.6 mg tablet (Senna 8.6 mg PO BID 11/18/22 06/30/23 History Laxative) diclofenac sodium 1 % topical gel 4 g topical QID PRN 03/23/23 06/30/23 History cyanocobalamin (vitamin B-12) 1 tab PO DAILY 04/20/23 06/30/23 History trazodone 150 mg tablet 75 mg PO QHS 04/26/23 06/30/23 History turmeric PO 05/02/23 05/04/23 History Exam Const General: cooperative Limitations: physical limitations (in wheelchair) Neck Neck: supple Resp Effort & Inspection: normal respiratory effort Auscultation: clear to auscultation bilaterally Cardio Rate: regular rate Rhythm: regular rhythm GI Palpation: soft and no masses Neuro General: patient alert, patient awake and patient oriented x3 Time Spent Time spent with Patient: <40 minutes Time was spent: other
[2023-06-30 08:36] VITALS: BP 116/44; PULSE 84; RESP 16; TEMP 36.5; O2SAT 96
--- NOTE | 2023-06-30 08:42 | W.ANESPRE ---
General Info Date of Service Date Performed: 06/30/23 Height: 5 ft 6 in Weight: 65.317 kg Body Mass Index (BMI): 23.2 Surgical Procedure: Operation Date: 06/30/23 09:10 Proposed Procedure Side Surgeon p Cystoscopy/ Transurethral Injection of Botox Dane Gaines MD Meds Allergies and Home Medications Allergies Allergy/AdvReac Type Severity Reaction Status Date / Time azithromycin Allergy Severe unknown Verified 06/30/23 08:09 fluoxetine HCl [From Prozac] Allergy Intermediate Skin Rash Verified 06/30/23 08:09 tramadol Allergy Intermediate Skin Rash Verified 06/30/23 08:09 ciprofloxacin [From Cipro] Allergy Mild unknown Verified 06/30/23 08:09 cephalexin [From Keflex] Allergy reported Verified 06/30/23 08:09 by her pharmacy ciprofloxacin HCl AdvReac Intermediate Diarrhea Verified 06/30/23 08:09 [From Cipro] codeine AdvReac Intermediate GI UPSET Verified 06/30/23 08:09 metaxalone [From Skelaxin] AdvReac Intermediate GI UPSET Verified 06/30/23 08:09 Metronidazole HCl AdvReac Intermediate Diarrhea Verified 06/30/23 08:09 [From Flagyl] pregabalin [From Lyrica] AdvReac Intermediate FOGGY BRAIN Verified 06/30/23 08:09 propranolol HCl AdvReac Intermediate VOMITING Verified 06/30/23 08:09 [From Inderal LA] venlafaxine HCl AdvReac Intermediate GI UPSET Verified 06/30/23 08:09 [From Effexor] gabapentin [From Neurontin] AdvReac Mild SLEEPY Verified 06/30/23 08:09 ibuprofen AdvReac Mild heart burn Verified 06/30/23 08:09 sulfamethoxazole AdvReac nausea, Verified 06/30/23 08:09 [From Bactrim] vomiting, diarrhea trimethoprim [From Bactrim] AdvReac nausea, Verified 06/30/23 08:09 vomiting, diarrhea SAVILLA Allergy Mild Bad Uncoded 06/30/23 08:09 headaches Home Medication Medication Instructions Recorded omeprazole 20 mg capsule,delayed 20 mg PO QAM 06/20/13 release alendronate 70 mg tablet See Rx Instructions .Route .COMPLEX 09/14/19 duloxetine 60 mg capsule,delayed 60 mg PO DAILY 09/14/19 release ondansetron HCl 4 mg tablet 4 mg PO Q6H PRN 09/14/19 calcium carbonate 500 mg calcium 1,000 mg PO DAILY 05/15/21 (1,250 mg) tablet (Calcium 500) cholecalciferol (vitamin D3) 125 5,000 unit PO DAILY 05/15/21 mcg (5,000 unit) tablet clonazepam 0.5 mg tablet 0.5 mg PO DAILY PRN 05/15/21 simvastatin 20 mg tablet 20 mg PO DAILY 05/15/21 prochlorperazine maleate 5 mg 5 mg PO TID PRN 04/21/22 tablet (Compazine) meclizine 12.5 mg tablet 12.5 mg PO TID PRN 11/18/22 sennosides 8.6 mg tablet (Senna 8.6 mg PO BID 11/18/22 Laxative) diclofenac sodium 1 % topical gel 4 g topical QID PRN 03/23/23 cyanocobalamin (vitamin B-12) 1 tab PO DAILY 04/20/23 trazodone 150 mg tablet 75 mg PO QHS 04/26/23 turmeric PO 05/02/23 Current Visit Medications: Current Medications Generic Name Dose Route Start Last Admin Trade Name Freq PRN Reason Stop Dose Admin Clindamycin HCl 300 mg 06/30/23 06:00 Clindamycin 300 Mg Cap PO 06/30/23 23:59 [facility] OnabotulinumtoxinA 100 units/ 0 units 06/30/23 06:00 Sodium Chloride 20 ml IJ 06/30/23 23:59 ONCE AYESHA Ringer's Solution 1,000 mls @ 80 mls/hr 06/30/23 06:00 IV 06/30/23 23:59 [facility] IV Miscellaneous Supplies 1 each 06/30/23 06:00 Iv Access IV 06/30/23 23:59 DIRECTED AYESHA Sodium Chloride 0 ml 06/30/23 06:00 Normal Saline Flush 10 Ml Syr IV 06/30/23 23:59 PRN PRN Sodium Chloride 0 ml 06/30/23 06:00 Normal Saline 10 Ml Vial IJ 06/30/23 23:59 DIRECTED PRN Sterile Water 0 ml 06/30/23 06:00 Water,Injection,Sterile 10 Ml Vial IJ 06/30/23 23:59 DIRECTED PRN PFSH Active Problems Active Problems: Problem Status Onset Code Diplopia H53.2 Imbalance R26.89 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 Chronic pain syndrome G89.4 Vaginitis and vulvovaginitis N76.0 Hx: UTI (urinary tract infection) Z87.440 Menieres disease H81.09 Dysuria R30.0 Urinary urgency R39.15 Pelvic pressure in female R10.2 Sensation of fullness in right ear H93.8X1 Vertigo R42 Referred otalgia of right ear H92.01 Painful total knee replacement, left T84.84XA, Z96.652 Urinary incontinence R32 Stomach problems 02/07/15 K31.9 Sensorineural hearing loss, bilateral 10/04/16 H90.3 Osteoporosis 07/10/15 M81.0 Mood disorder 02/07/15 F39 Hyperlipidemia 02/07/15 E78.5 Female stress incontinence 02/10/16 N39.3 Disequilibrium 10/04/16 R42 Chronic joint pain 02/07/15 M25.50, G89.29 Encounter for rehabilitation 09/07/13 Z51.89 Sleep disturbance G47.9 Hyperlipidemia E78.5 GERD (gastroesophageal reflux disease) K21.9 Fibromyalgia M79.7 Medical History Medical History Vestibular dysfunction Insomnia Hypokalemia Prediabetes Seasonal allergic rhinitis History of TB skin testing Constipation Common peroneal neuropathy Dry mouth Lymphangioleiomyomatosis Lung nodule Anxiety associated with depression Hiatal hernia Spinal stenosis Trochanteric bursitis Vitamin D deficiency Tinea corporis Lumbar back pain Dry eye syndrome Panic disorder Hearing loss, bilateral Tinnitus, bilateral DDD (degenerative disc disease) Thoracic back pain Chronic left SI joint pain Weakness of both legs Palpitations pt. denies Slurred speech Arthritis Actinic keratosis Swelling of left hand Pes anserinus bursitis Bilateral thumb pain Acute bilateral low back pain Overactive bladder Easy bruising Chronic joint pain no imoprovement with Gabapentin or Lyrica. PCP manages Hydrocodone Rx. COX2 inhibitor at [facility] [place] [facility] 2014 Mood disorder Trazadone for sleep, Zoloft and Clonazepam Hyperlipidemia Stopped Simvistatin Age related osteoporosis 2015 Lumbar spine T score - 3.1. Total hip - 2.6 Female stress incontinence mild daily sx. Stomach problems takes PPI Surgical History Surgical History History of tonsillectomy and adenoidectomy piriformis release 2001 Replacement of total knee joint (09/03/13) left Rotator Cuff Repair 2006 Excision, Neuroma 2004 L foot. Colonoscopy - IV Sedation 2011 with endoscopy Arthroplasty of knee (08/23/13) L knee arthroscopy. Tobacco Smoking/Tobacco Use Status: Former Tobacco Use Alcohol Alcohol Intake: former Substance Use Substance use: Never Substance use type: does not use Prental History History 1 Para 0 Hx # Term Pregnancies Multiple births Hx # Pregnancies Ectopic pregnancies AB induced Hx Number of Living Children AB spontaneous Vital Signs and Lab Results Lab Results Blood Type / Crossmatch: No Data to Display Complete Blood Count: No Data to Display Complete Metabolic Panel: No Data to Display Liver Function Panel: No Data to Display Coagulation Panel: No Data to Display Cardiac Panel: No Data to Display Arterial Blood Gas: No Data to Display Venous Blood Gas: No Data to Display Pancreas Panel: No Data to Display Thyroid Panel: No Data to Display Infectious Disease: No Data to Display Blood Cultures: No Data to Display Toxicology Panel: No Data to Display Imaging and Studies Imaging and Studies Study information below may be from another EMR and interpreted by another provider. Please see original notes in EMR for more complete details. Carotid Artery Summary:: 12/17: no sig stenosis. Anesthesia Assessment and Plan Anesthesia History Personal History: No History of Anesthesia Complications Family History: No Family History of Anesthesia Complications Exercise Tolerance Exercise Tolerance: Metabolic Equivalents>4 Cardiac & Pulmonary Exam Cardiac Exam: Normal S1/S2 Heart Sounds Pulmonary Exam: Clear Bilateral Breath Sounds Implantable Cardiac Device Does patient have a Pacemaker or an ICD?: No Airway Exam Known Difficult Airway: No Mallampati Class: 4 Mouth Opening: Narrow (< 3cm) Thyromental Distance: Less than 3 cm Neck Range of Motion: Limited ROM Neck Circumference: Normal Teeth Condition: Edentulous ASA Classification ASA Score: ASA 2 Emergency Case?: No NPO Status NPO Status: NPO Clears >2 hours, Solids >8 hours Anesthesia Plan Resuscitation Status: Full Code Anesthesia Technique: General Anesthesia Airway Planned: Natural Airway Monitors Used: Standard Monitors Preoperative Comments:: 83 yo female for cysto/botox. Sig PMHx: GERD (omeprazole, well controlled), vertigo (always), fibromyalgia, spinal stenosis, lung nodules. former smoker,
[2023-06-30 08:46] VITALS: BMI 23.2
--- NOTE | 2023-06-30 08:46 | W.PM.DSUDISC ---
Date of service: 06/30/23 Time of Service: 09:39 Discharge Plan Disposition Patient Disposition: Home Condition: Stable Discharge Details Reason For Visit: cystoscopy with Botox injection Attending Provider: Dane Gaines Primary Care Provider: Warren Yadav Roberts Meds and New Rx's Prescriptions: No Action turmeric PO clonazepam 0.5 mg tablet 0.5 mg PO DAILY PRN Patient Comments: pt reports taking daily (1 tab) alendronate 70 mg Tablet See Rx Instructions .ROUTE .COMPLEX Patient Comments: Once weekly Rx Instructions: 70 mg orally ondansetron HCl 4 mg Tablet 4 mg PO Q6H PRN duloxetine 60 mg Capsule,Delayed Release(Dr/Ec) 60 mg PO DAILY calcium carbonate [Calcium 500] 500 mg calcium (1,250 mg) tablet 1,000 mg PO DAILY cholecalciferol (vitamin D3) 125 mcg (5,000 unit) tablet 5,000 unit PO DAILY Patient Comments: pt unsure of dose simvastatin 20 mg tablet 20 mg PO DAILY prochlorperazine maleate [Compazine] 5 mg tablet 5 mg PO TID PRN meclizine 12.5 mg tablet 12.5 mg PO TID PRN sennosides [Senna Laxative] 8.6 mg tablet 8.6 mg PO BID diclofenac sodium 1 % gel 4 g topical QID PRN trazodone 150 mg tablet 75 mg PO QHS omeprazole 20 MG capsule,delayed release(DR/EC) 20 mg PO QAM Patient Comments: 07/19/17 PCP RECORD STATES 20 MG BID. cyanocobalamin (vitamin B-12) Tablet,Chewable 1 tab PO DAILY Discharge Instructions Additional Instructions: do not be surprised if you see blood in the urine for the next 2 or 3 days. ask patient to call with a progress report in @ 1 week followup appt (either in person or telehealth) in @ 5 months Stand Alone Forms: Anesthesia Discharge Inst., Sj Crouch (DSU) Activity:: Activity as Tolerated Shower/Bathe:: 24 hours Diet:: As Tolerated Discharge Orders Discharge Orders: Discharge Order (Routine); Ordered 06/30/23 Ordered By: Dane Gaines DS: Diagnosis Discharge Diagnosis (1) Urinary incontinence: Status: Acute (2) Urinary urgency: Status: Acute
[2023-06-30 08:51] LABS: Bilirubin Negative (Negative); Blood Moderate (Negative); Clarity Cloudy (Clear); Glucose Negative (Negative); Ketones Negative (Negative); Leukocyte Esterase Moderate (Negative); Nitrite Positive (Negative); Specific Gravity >= 1.030 (1.005-1.025); Urobilinogen 0.2 mg/dL (Up to 0.2); pH 6.5 (5-8)
[2023-06-30 08:58] LABS: C & S Indicated? Yes; WBC >50 HPF (0-5)
[2023-06-30] MEDS: Lactated Ringers 1,000 ML 80 ML IV (08:59)
[2023-06-30] MEDS: Clindamycin 300 MG CAP PO (09:06)
[2023-06-30] MEDS: BOTULINUM TOXIN TYPE A 100 UNITS, Normal Saline 20 ML IJ (09:28)
[2023-06-30] MEDS: Lidocaine 2% Jelly 6 ML SYR (09:28)
[2023-06-30 09:47] VITALS: BP 108/50; PULSE 70; RESP 16; TEMP 36.4; O2SAT 97
[2023-06-30 09:50] VITALS: BP 108/50; PULSE 70; RESP 16; TEMP 36.4; O2SAT 97
--- NOTE | 2023-06-30 09:53 | W.PM.OP ---
Date of service: 06/30/23 Time of Service: 09:53 Operative Note Operative Note DATE OF PROCEDURE: 06/30/23 PRE-OP DIAGNOSIS: Urinary incontinence due to overactive bladder POST-OP DIAGNOSIS: same PROCEDURE: cystoscopy with transurethral injection of Botox into detrusor muscle SURGEON: Dane Gaines ANESTHESIA TYPE: Local By Surgeon and General:No Airway Refer to Anesthesia Record ESTIMATED BLOOD LOSS: 10 PATHOLOGY: none sent COMPLICATIONS: None Patient was transported to: same day Patient's condition: stable Implants: 100 units Botox Indications: This is an 83 year old woman who has a long history of mixed urinary incontinence. Her biggest complaint is urinary uregency, frequency and urgency incontinence. She has failed oral anticholinergics and beta 3 agonists. she presents for a Botox injection. She has a history of recurrent UTIs. Her prior cultures have grown E Coli. She was prophylaxed at with an antibiotic to cover E. coli and a urine culture was sent today. We will adjust her antibiotic coverage once her final C&S is available. Findings: bladder mucosa erythematous with several small diverticuli Procedure Description: The patient was brought to the operating room on 06/30/2023. She was given a single dose of oral antibiotic. Her pretreatment urinalysis was suspicious for a urinary tract infection, so a culture and sensitivity was sent. She was given general anesthesia without intubation and placed in the dorsal lithotomy position. Her genitalia was prepped and draped. 2% Xylocaine jelly was instilled into the urethra to act as a local anesthetic. A 20 Macedonian urethrotome sheath was passed through the urethra into the bladder. The bladder was inspected with the 30 degree lens. The lateral bladder mucosa appeared erythematous. Her bladder capacity seems small. There were multiple small diverticuli present. We then performed transurethral injection of Botox into the detrusor muscle. We used a solution of 100 units mixed and 20 mL of saline. We injected 1 mL in 20 different locations in the bladder. We injected on the posterior bladder wall and used the grid of 5 injection sites horizontally and 4 injection sites vertically. The bladder was then emptied and the scope was removed. The patient tolerated the procedure well with no complications.
[2023-06-30] MEDS: Phenazopyridine 200 MG TAB PO (10:00)
[2023-06-30] MEDS: clonazePAM 0.5 MG TAB PO (10:00)
--- NOTE | 2023-06-30 10:32 | W.ANESPOSTOP ---
Postoperative Evaluation Date, Time and Location Date Performed: 06/30/23 Time Performed: 10:32 Patient Location: Day Surgery Unit Vital Signs Most Recent Imported Vital Signs: Most Recent Vital Signs Temp Pulse Resp BP Pulse Ox 36.4 C L 70 16 108/50 L 97 06/30/23 09:50 06/30/23 09:50 06/30/23 09:50 06/30/23 09:50 06/30/23 09:50 Pain Score Most Recent Pain Score: Most Recent Pain Score Pain Level 4 06/30/23 09:50 Assessment Mental Status: Awake (Alert & Oriented to Patient Baseline) Airway and Respiratory Function: Patent airway with normal (patient baseline) respiratory exam Cardiovascular Function: Hemodynamically Stable Hydration Status: Adequately Hydrated Nausea & Vomiting: No Nausea or Vomiting Pain: Pt. Denies Any Pain Peripheral Nerve Block: Patient did not receive a nerve block
[2023-06-30 11:13] VITALS: BP 113/36; PULSE 67; RESP 16; TEMP 36.4; O2SAT 97
== END 2023-06-30 08:02 | disposition home or self-care (01) ==
PROVIDERS: PCP Family Medicine; Visit Provider Urology
PROC: (CPT 52287; principal; 2023-06-30 09:00)
DX: N32.81 Overactive bladder (principal); N39.41 Urge incontinence; R35.0 Frequency of micturition
CPT/HCPCS: 52287; 87077; 81003; 81015; 87086; 87186; J0585; J2405

== ENCOUNTER → 2023-07-18 11:10 | Outpatient (BNVA) | payer MEDICARE, SELFPAY | PROVIDERS: PCP Family Medicine; Referring Provider Family Medicine; Visit Provider Nurse Practitioner Gerontology | DX: N39.41 Urge incontinence (principal); R30.0 Dysuria | CPT/HCPCS: 99442 ==

== ENCOUNTER → 2023-08-08 13:01 | Outpatient (BNVA) | payer MEDICARE, SELFPAY | PROVIDERS: PCP Family Medicine; Referring Provider Family Medicine; Visit Provider Physician Assistant Surgical | DX: J98.4 Other disorders of lung (principal) | CPT/HCPCS: 99214 ==

== ENCOUNTER 2023-08-19 15:25 | Outpatient (REF) | payer MEDICARE, SELFPAY ==
--- NOTE | 2023-08-19 13:42 | SKI_PTH ---
PATIENT: Evelyn Anaya LOC: [facility] U#:[id number] AGE/SX: 83/F ROOM: RE08/19/[address]: Warren Yadav : 1940 BED: DIS: 08/19/2023 SPEC #: [id number] RECD: 08/19/23 16:58 STATUS: ANDRAE COHEN #: [id number] MARCY: 08/19/23 13:[address]: Warren Yadav DEPT: Surgical Specimen RECD BY: Tereza Bethea Tissues: 1 - SKIN BIOPSY(SHAVE/PUNCH) Procedures: SKIN LEVEL 4 Comments: [id number]
[2023-08-19 18:58] LABS: CREATININE 0.8 mg/dL (0.55-1.02); Estimated GFR 73.98 (mL/min/1.73m2)
== END 2023-08-19 15:26 | disposition home or self-care (01) ==
LOC: NCHCN 15:25
PROVIDERS: PCP Family Medicine; Visit Provider Family Medicine
DX: G89.4 Chronic pain syndrome (principal)
CPT/HCPCS: 82565; 88305

== ENCOUNTER → 2023-09-08 13:47 | Outpatient (BNVA) | payer MEDICARE, SELFPAY | PROVIDERS: PCP Family Medicine; Referring Provider Family Medicine; Visit Provider Nurse Practitioner Gerontology | DX: R39.15 Urgency of urination (principal); Z87.440 Personal history of urinary (tract) infections | CPT/HCPCS: 81003; 99213 ==

== ENCOUNTER 2023-09-08 14:31 | Outpatient (REF) | payer MEDICARE, SELFPAY | END 2023-09-08 14:32 | disposition home or self-care (01) | LOC: LBN 14:31 | PROVIDERS: PCP Family Medicine; Visit Provider Nurse Practitioner Gerontology | DX: R39.15 Urgency of urination (principal); Z87.440 Personal history of urinary (tract) infections | CPT/HCPCS: 87086 ==

== ENCOUNTER 2023-09-09 16:01 | Outpatient (REF) | payer MEDICARE, SELFPAY ==
--- NOTE | 2023-09-09 14:40 | SKI_PTH ---
PATIENT: Evelyn Anaya LOC: [facility] U#:[id number] AGE/SX: 83/F ROOM: RE09/09/[address]: Warren Yadav : 1940 BED: DIS: 09/09/2023 SPEC #: [id number] RECD: 09/09/23 18:24 STATUS: ANRDAE COHEN #: [id number] MARCY: 09/09/23 14:[address]: Warren Yadav DEPT: Surgical Specimen RECD BY: Tereza Bethea Tissues: 1 - SKIN BIOPSY(SHAVE/PUNCH) Procedures: SKIN LEVEL 4 Comments: [id number]
== END 2023-09-09 16:02 | disposition home or self-care (01) ==
LOC: NCHCN 16:01
PROVIDERS: PCP Family Medicine; Visit Provider Family Medicine
DX: L90.5 Scar conditions and fibrosis of skin (principal); R23.8 Other skin changes; C44.612 Basal cell carcinoma of skin of right upper limb, including shoulder
CPT/HCPCS: 88305

== ENCOUNTER 2023-10-18 18:08 | Outpatient (REF) | payer MEDICARE, SELFPAY ==
[2023-10-18 19:41] LABS: Hemoglobin A1C 5.6 % (<5.7)
[2023-10-18 19:49] LABS: ALT 24 U/L (14-59); AST 21 U/L (15-37); Albumin 3.5 g/dL (3.4-5.0); Alkaline Phosphatase 90 U/L (46-116); Anion Gap 13.3 mmol/L (3-11); BUN 14 mg/dL (7-18); Bilirubin, Total 0.2 mg/dL (0.2-1.0); CO2 23.7 mmol/L (21.0-32.0); CREATININE 0.8 mg/dL (0.55-1.02); Calcium 8.9 mg/dL (8.5-10.1); Chloride 104 mmol/L (98-107); Estimated GFR 73.98 (mL/min/1.73m2); Glucose 135 mg/dL (74-106); Potassium 4.4 mmol/L (3.5-5.1); Sodium 141 mmol/L (136-145); TSH (W/Ref FT4) 0.61 uIU/mL (0.36-3.74); Total Protein 6.9 g/dL (6.4-8.2)
== END 2023-10-18 18:09 | disposition home or self-care (01) ==
LOC: NCHCN 18:08
PROVIDERS: PCP Family Medicine; Visit Provider Family Medicine
DX: R63.4 Abnormal weight loss (principal)
CPT/HCPCS: 80053; 83036; 84443

== ENCOUNTER 2023-10-28 08:48 | Day surgery (SDC) | payer MEDICARE, SELFPAY ==
[2023-10-28 09:15] VITALS: BP 99/54; PULSE 70; RESP 16; TEMP 36.1; O2SAT 97
--- NOTE | 2023-10-28 10:17 | W.ANESPRE ---
General Info Date of Service Date Performed: 10/28/23 Height: 5 ft 6 in Weight: 59.9 kg Body Mass Index (BMI): 21.3 Surgical Procedure: Operation Date: 10/28/23 10:40 Proposed Procedure Side Surgeon p Cataract Extraction with IOL Implant Left Bang Templeton MD Meds Allergies and Home Medications Allergies Allergy/AdvReac Type Severity Reaction Status Date / Time azithromycin Allergy Severe unknown Verified 10/28/23 09:36 fluoxetine HCl [From Prozac] Allergy Intermediate Skin Rash Verified 10/28/23 09:36 tramadol Allergy Intermediate Skin Rash Verified 10/28/23 09:36 cephalexin [From Keflex] Allergy reported Verified 10/28/23 09:36 by her pharmacy ciprofloxacin HCl AdvReac Intermediate Diarrhea Verified 10/28/23 09:36 [From Cipro] codeine AdvReac Intermediate GI UPSET Verified 10/28/23 09:36 metaxalone [From Skelaxin] AdvReac Intermediate GI UPSET Verified 10/28/23 09:36 Metronidazole HCl AdvReac Intermediate Diarrhea Verified 10/28/23 09:36 [From Flagyl] pregabalin [From Lyrica] AdvReac Intermediate FOGGY BRAIN Verified 10/28/23 09:36 propranolol HCl AdvReac Intermediate VOMITING Verified 10/28/23 09:36 [From Inderal LA] venlafaxine HCl AdvReac Intermediate GI UPSET Verified 10/28/23 09:36 [From Effexor] gabapentin [From Neurontin] AdvReac Mild SLEEPY Verified 10/28/23 09:36 ibuprofen AdvReac Mild heart burn Verified 10/28/23 09:36 sulfamethoxazole AdvReac nausea, Verified 10/28/23 09:36 [From Bactrim] vomiting, diarrhea trimethoprim [From Bactrim] AdvReac nausea, Verified 10/28/23 09:36 vomiting, diarrhea SAVILLA Allergy Mild Bad Uncoded 10/28/23 09:36 headaches Home Medication Medication Instructions Recorded omeprazole 20 mg capsule,delayed 20 mg PO QAM 06/20/13 release alendronate 70 mg tablet See Rx Instructions .Route .COMPLEX 09/14/19 duloxetine 60 mg capsule,delayed 60 mg PO DAILY 09/14/19 release ondansetron HCl 4 mg tablet 4 mg PO Q6H PRN 09/14/19 calcium carbonate 500 mg calcium 1,000 mg PO DAILY 05/15/21 (1,250 mg) tablet (Calcium 500) cholecalciferol (vitamin D3) 125 5,000 unit PO DAILY 05/15/21 mcg (5,000 unit) tablet clonazepam 0.5 mg tablet 0.5 mg PO DAILY PRN 05/15/21 simvastatin 20 mg tablet 20 mg PO DAILY 05/15/21 prochlorperazine maleate 5 mg 5 mg PO TID PRN 04/21/22 tablet (Compazine) meclizine 12.5 mg tablet 12.5 mg PO TID PRN 11/18/22 sennosides 8.6 mg tablet (Senna 8.6 mg PO BID 11/18/22 Laxative) diclofenac sodium 1 % topical gel 4 g topical QID PRN 03/23/23 cyanocobalamin (vitamin B-12) 1 tab PO DAILY 04/20/23 trazodone 150 mg tablet 75 mg PO QHS 04/26/23 turmeric PO 05/02/23 citalopram 40 mg tablet (Celexa) 100 mg PO BID PRN 09/08/23 estradiol 0.01% (0.1 mg/gram) 1 g vaginal DIRECTED #60 grams 09/08/23 vaginal cream nitrofurantoin 100 mg capsule 100 mg PO BID 10/27/23 Current Visit Medications: Current Medications Generic Name Dose Route Start Last Admin Trade Name Freq PRN Reason Stop Dose Admin Acetaminophen 1,000 mg 10/28/23 06:00 Acetaminophen 500 Mg Tab PO 11/27/23 05:59 Q4H PRN PRN Balanced Salt Solution 500 ml 10/28/23 06:00 Balanced Salt Soln.-Plus 500 Ml Bag OP 11/27/23 05:59 DIRECTED AYESHA Miscellaneous Medication 0 ml 10/28/23 06:00 Prednisolone 1%, Moxifloxacin 0.5%, Bromfenac 0.09% 5ml Btl OS 11/27/23 05:59 DIRECTED AYESHA Miscellaneous Medication 0 ml 10/28/23 06:00 Tropicam./Phenyleph. 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 Chronic pain syndrome G89.4 Vaginitis and vulvovaginitis N76.0 Hx: UTI (urinary tract infection) Z87.440 Menieres disease H81.09 Dysuria R30.0 Urinary urgency R39.15 Pelvic pressure in female R10.2 Sensation of fullness in right ear H93.8X1 Vertigo R42 Referred otalgia of right ear H92.01 Painful total knee replacement, left T84.84XA, Z96.652 Urinary incontinence R32 Stomach problems 02/07/15 K31.9 Sensorineural hearing loss, bilateral 10/04/16 H90.3 Osteoporosis 07/10/15 M81.0 Mood disorder 02/07/15 F39 Hyperlipidemia 02/07/15 E78.5 Female stress incontinence 02/10/16 N39.3 Disequilibrium 10/04/16 R42 Chronic joint pain 02/07/15 M25.50, G89.29 Encounter for rehabilitation 09/07/13 Z51.89 Sleep disturbance G47.9 Hyperlipidemia E78.5 GERD (gastroesophageal reflux disease) K21.9 Fibromyalgia M79.7 Medical History Medical History Vestibular dysfunction Insomnia Hypokalemia Prediabetes Seasonal allergic rhinitis History of TB skin testing Constipation Common peroneal neuropathy Dry mouth Lymphangioleiomyomatosis Lung nodule Anxiety associated with depression Hiatal hernia Spinal stenosis Trochanteric bursitis Vitamin D deficiency Tinea corporis Lumbar back pain Dry eye syndrome Panic disorder Hearing loss, bilateral Tinnitus, bilateral DDD (degenerative disc disease) Thoracic back pain Chronic left SI joint pain Weakness of both legs Palpitations pt. denies Slurred speech Arthritis Actinic keratosis Swelling of left hand Pes anserinus bursitis Bilateral thumb pain Acute bilateral low back pain Overactive bladder Easy bruising Chronic joint pain no imoprovement with Gabapentin or Lyrica. PCP manages Hydrocodone Rx. COX2 inhibitor at [facility] [place] [facility] 2014 Mood disorder Trazadone for sleep, Zoloft and Clonazepam Hyperlipidemia Stopped Simvistatin Age related osteoporosis 2014 Lumbar spine T score - 3.1. Total hip - 2.6 Female stress incontinence mild daily sx. Stomach problems takes PPI Surgical History Surgical History History of tonsillectomy and adenoidectomy piriformis release 2002 Replacement of total knee joint (09/03/13) left Rotator Cuff Repair 2006 Excision, Neuroma 2004 L foot. Colonoscopy - IV Sedation 2011 with endoscopy Arthroplasty of knee (08/23/13) L knee arthroscopy. Tobacco Smoking/Tobacco Use Status: Former Tobacco Use Alcohol Alcohol Intake: former Substance Use Substance use: Never Substance use type: does not use Prental History History 1 Para 0 Hx # Term Pregnancies Multiple births Hx # Pregnancies Ectopic pregnancies AB induced Hx Number of Living Children AB spontaneous Vital Signs and Lab Results Vital Signs Most Recent Vital Signs in EMR: Most Recent Vital Signs Temp Pulse Resp BP Pulse Ox 36.1 C L 70 16 99/54 L 97 10/28/23 09:15 10/28/23 09:15 10/28/23 09:15 10/28/23 09:15 10/28/23 09:15 Lab Results Blood Type / Crossmatch: No Data to Display Complete Blood Count: No Data to Display Complete Metabolic Panel: Sodium 141 mmol/L (136-145) 10/18/23 17:10 Potassium 4.4 mmol/L (3.5-5.1) 10/18/23 17:10 Chloride 104 mmol/L (98-107) 10/18/23 17:10 Carbon Dioxide 23.7 mmol/L (21.0-32.0) 10/18/23 17:10 BUN 14 mg/dL (7-18) 10/18/23 17:10 Creatinine 0.8 mg/dL (0.55-1.02) 10/18/23 17:10 Est GFR (CKD-EPI 2020) 73.98 (mL/min/1.73m2) 10/18/23 17:10 Calcium 8.9 mg/dL (8.5-10.1) 10/18/23 17:10 Albumin 3.5 g/dL (3.4-5.0) 10/18/23 17:10 Glucose 135 mg/dL (74-106) H 10/18/23 17:10 Hemoglobin A1c 5.6 % (<5.7) 10/18/23 17:10 Liver Function Panel: Alanine Aminotransferase (ALT/SGPT) 24 U/L (14-59) 10/18/23 17:10 Aspartate Amino Transf (AST/SGOT) 21 U/L (15-37) 10/18/23 17:10 Coagulation Panel: No Data to Display Cardiac Panel: No Data to Display Arterial Blood Gas: No Data to Display Venous Blood Gas: No Data to Display Pancreas Panel: No Data to Display Thyroid Panel: Thyroid Stimulating Hormone (TSH) 0.61 uIU/mL (0.36-3.74) 10/18/23 17:10 Infectious Disease: No Data to Display Blood Cultures: No Data to Display Toxicology Panel: No Data to Display Imaging and Studies Imaging and Studies Study information below may be from another EMR and interpreted by another provider. Please see original notes in EMR for more complete details. Carotid Artery Summary:: 12/17: no sig stenosis. Anesthesia Assessment and Plan Anesthesia History Personal History: No History of Anesthesia Complications Family History: No Family History of Anesthesia Complications Exercise Tolerance Exercise Tolerance: Metabolic Equivalents>4 Cardiac & Pulmonary Exam Cardiac Exam: Normal S1/S2 Heart Sounds Pulmonary Exam: Clear Bilateral Breath Sounds Implantable Cardiac Device Does patient have a Pacemaker or an ICD?: No Airway Exam Known Difficult Airway: No Mallampati Class: 4 Mouth Opening: Narrow (< 3cm) Thyromental Distance: Less than 3 cm Neck Range of Motion: Limited ROM Neck Circumference: Normal Teeth Condition: Edentulous ASA Classification ASA Score: ASA 2 Emergency Case?: No NPO Status NPO Status: NPO Clears >2 hours, Solids >8 hours Anesthesia Plan Resuscitation Status: Full Code Anesthesia Technique: MAC Anesthesia Airway Planned: Natural Airway Monitors Used: Standard Monitors
[2023-10-28 10:38] VITALS: BMI 21.3
[2023-10-28] MEDS: Balanced Salt Soln.-PLUS 500 ML BAG OP (10:53)
[2023-10-28] MEDS: Lidocaine 1% Pres-Free 5 ML VIAL (10:55)
[2023-10-28] MEDS: Tetracaine 0.5% 4 ML BTL OS (10:55)
[2023-10-28] MEDS: Duovisc Viscoelastic System EACH 1 EACH (10:58)
[2023-10-28] MEDS: Trypan Blue 0.06% 0.5 ML SYR (10:59)
[2023-10-28] MEDS: Povidone-Iodine Ophth 30 ML BTL (10:59)
[2023-10-28 11:15] VITALS: BP 135/59; PULSE 67; RESP 14; TEMP 36.4; O2SAT 98
--- NOTE | 2023-10-28 11:17 | W.PM.DSUDISC ---
Date of service: 10/28/23 Time of Service: 11:17 Discharge Plan Disposition Patient Disposition: Home Discharge Details Attending Provider: Bang Templeton Primary Care Provider: Warren Yadav [place] Meds and New Rx's Prescriptions: No Action turmeric PO clonazepam 0.5 mg tablet 0.5 mg PO DAILY PRN Patient Comments: pt reports taking daily (1 tab) citalopram [Celexa] 40 mg tablet 100 mg PO BID PRN Patient Comments: PT DOES NOT RECOGNIZE estradiol 0.01 % (0.1 mg/gram) cream 1 g vaginal DIRECTED Qty: 60 3RF Rx Instructions: Insert a pea sized amount vaginally nightly for 2 weeks, then reduce to 3 times per week alendronate 70 mg Tablet See Rx Instructions .ROUTE .COMPLEX Patient Comments: Once weekly Rx Instructions: 70 mg orally ondansetron HCl 4 mg Tablet 4 mg PO Q6H PRN duloxetine 60 mg Capsule,Delayed Release(Dr/Ec) 60 mg PO DAILY calcium carbonate [Calcium 500] 500 mg calcium (1,250 mg) tablet 1,000 mg PO DAILY cholecalciferol (vitamin D3) 125 mcg (5,000 unit) tablet 5,000 unit PO DAILY Patient Comments: pt unsure of dose simvastatin 20 mg tablet 20 mg PO DAILY prochlorperazine maleate [Compazine] 5 mg tablet 5 mg PO TID PRN meclizine 12.5 mg tablet 12.5 mg PO TID PRN sennosides [Senna Laxative] 8.6 mg tablet 8.6 mg PO BID diclofenac sodium 1 % gel 4 g topical QID PRN trazodone 150 mg tablet 75 mg PO QHS omeprazole 20 MG capsule,delayed release(DR/EC) 20 mg PO QAM Patient Comments: 07/19/17 PCP RECORD STATES 20 MG BID. nitrofurantoin 100 mg capsule 100 mg PO BID Patient Comments: last dose 10/27/23 for UTI Rx Instructions: must administer with a meal/food cyanocobalamin (vitamin B-12) Tablet,Chewable 1 tab PO DAILY Discharge Instructions Stand Alone Forms: [facility] Post-Op Cataract, Press Ganey (DSU) Discharge Orders Discharge Orders: Discharge Order (Routine); Ordered 10/28/23 Ordered By: Bang Templeton DS: Diagnosis Discharge Diagnosis (1) Cortical age-related cataract, left eye: Status: Resolved (2) Nuclear age-related cataract, left eye: Status: Resolved
--- NOTE | 2023-10-28 11:18 | ROE_ITS ---
Date of service: 10/28/23 Time of Service: 11:18 Operative Note Operative Note DATE OF PROCEDURE: 10/28/23 PRE-OP DIAGNOSIS: Nuclear/cortical cataract, left eye POST-OP DIAGNOSIS: same PROCEDURE: Cataract extraction using phacoemulsification with intraocular lens implant, left eye SURGEON: Bang Templeton ANESTHESIA TYPE: Local By Surgeon and MAC Refer to Anesthesia Record PATHOLOGY: none sent COMPLICATIONS: None Patient was transported to: same day Patient's condition: stable Implants: Christiano Clareon [id number] Indications: Progressive decreased vision due to cataract, left eye Procedure Description: CATARACT SURGERY OPERATIVE REPORT PREOPERATIVE DIAGNOSIS: Nuclear/cortical cataract, left eye POSTOPERATIVE DIAGNOSIS: Same OPERATION: Cataract extraction using phacoemulsification with posterior chamber intraocular lens implant, left eye. IOL: IOL National Facilities Manager/Model: Christiano Clareon [id number] IOL Power: + 20.0 diopters IOL Serial Number: [id number] Optic Diameter: 6.0mm Haptic/Overall Diameter: 13.0mm PHACO INFO: ChristianoGranicusurion Vision System with OZil and Active Fluidics Cumulative Dispersed Energy (CDE): 13.25 seconds SURGEON: Bang Templeton MD, [place] ANESTHESIA: Monitored Anesthesia Care (MAC), with local sub-tenon's anesthetic infiltration COMPLICATIONS: None SPECIMENS: None INDICATIONS FOR PROCEDURE: The patient is an 83-year-old lady with history of diminished visual acuity in her left eye secondary to the development of nuclear/cortical cataract. She is significantly symptomatic that she desires cataract surgery and attempt to improve and maximize her vision. See office notes for detailed information. PROCEDURE: The correct surgical eye was identified and marked as the left eye and the pupil was dilated in the preoperative area using mydriatics and cycloplegics. The dilated pupil size was 7.0 mm. The patient elected to proceed without oral sedation. The patient was brought to the operating room where cardiopulmonary monitoring was instituted and surgical time-out was performed, confirming the correct operative eye and IOL power. Topical anesthesia was administered and ophthalmic povidone-iodine 5% was instilled into the conjunctival fornices. The paulo-ocular area was prepped with Betadine 10% solution and draped in the usual sterile fashion for intraocular surgery, including an aperture drape. A Tegaderm transparent film dressing was cut in half and used to cover the lashes and lid margins. Care was taken to sequester the lashes and lid margins under the Tegaderm dressing. A lid speculum was placed between the lids of the operative eye and the Christiano Lux[employer] Revalia operating microscope was maneuvered into position. Clarice scissors were then used to make a conjunctival buttonhole approximately 6mm posterior to the limbus in the inferonasal quadrant. Blunt dissection was carried out to expose bare sclera, and a blunt-tipped sub-tenon?s anesthesia cannula was introduced and passed posteriorly along the globe where non- preserved plain lidocaine was injected into posterior sub-Tenon?s space. A sideport knife was used to make a paracentesis port. VisionBlue was injected into the anterior chamber and allowed to sit for 30 seconds. Intraocular phenylephrine/lidocaine was injected into the anterior chamber. The anterior chamber was then filled with viscoelastic. A keratome knife was used construct a two-plane clear corneal tunnel extending 2.0mm into clear cornea. A flap was raised on the anterior capsule and capsulorhexis forceps were used to complete a continuous curvilinear capsulorhexis of 5.5 mm. Balanced salt solution was then used to perform cortical cleaving hydrodissection and nuclear hydrodelineation until the lens could be freely rotated within the capsular bag. The lens nucleus was then disassembled and removed within the capsular bag and iris plane using phacoemulsification. Residual cortical material was removed using the irrigation/aspiration handpiece. The posterior capsule was carefully polished to remove as much residual lens epithelial cells as safely possible. The capsular bag was then inflated and the anterior chamber deepened with viscoelastic. The lens implant described above was inserted into the capsular bag using the Christiano Autonome Injector. A Kuglen hook was used to dial the IOL into position. Residual viscoelastic was then removed first from posterior to the IOL, then from the anterior chamber using the I/A handpiece. The lens implant was noted to center nicely within the capsular bag. The incisions were stromally hydrated, and the anterior chamber was reformed using BSS. Then 0.5cc of moxifloxacin 1.0mg/ml were injected into the capsular bag and anterior chamber. The incisions were checked with a Weck spear and found to be secure. Several drops of ophthalmic povidone-iodine 5% were then applied to the eye followed by two drops of combination steroid/NSAID/antibiotic solution. The drapes were removed and a clear plastic protective eye shield was placed over the eye. The patient was then returned to [facility] Day Surgery in stable condition.
--- NOTE | 2023-10-28 11:50 | W.ANESPOSTOP ---
Postoperative Evaluation Date, Time and Location Date Performed: 10/28/23 Time Performed: 11:20 Patient Location: Day Surgery Unit Vital Signs Most Recent Imported Vital Signs: Most Recent Vital Signs Temp Pulse Resp BP Pulse Ox 36.4 C L 67 14 135/59 L 98 10/28/23 11:15 10/28/23 11:15 10/28/23 11:15 10/28/23 11:15 10/28/23 11:15 Pain Score Most Recent Pain Score: Most Recent Pain Score Pain Level 0 10/28/23 11:15 Assessment Mental Status: Awake (Alert & Oriented to Patient Baseline) Airway and Respiratory Function: Patent airway with normal (patient baseline) respiratory exam Cardiovascular Function: Hemodynamically Stable Hydration Status: Adequately Hydrated Nausea & Vomiting: No Nausea or Vomiting Pain: Pt. Denies Any Pain Peripheral Nerve Block: Patient did not receive a nerve block
== END 2023-10-28 11:49 | disposition home or self-care (01) ==
LOC: SUR 08:48
PROVIDERS: PCP Family Medicine; Visit Provider Ophthalmology
PROC: (CPT 66984; principal; 2023-10-28 10:30)
DX: H25.012 Cortical age-related cataract, left eye (principal); H25.12 Age-related nuclear cataract, left eye; K21.9 Gastro-esophageal reflux disease without esophagitis; G47.9 Sleep disorder, unspecified
CPT/HCPCS: 66984; 00123; V2632; J2003

== ENCOUNTER → 2023-11-09 14:49 | Outpatient (BNVA) | payer MEDICARE, SELFPAY | PROVIDERS: PCP Family Medicine; Referring Provider Family Medicine; Visit Provider Nurse Practitioner Gerontology | DX: R30.0 Dysuria (principal); R39.15 Urgency of urination | CPT/HCPCS: 99442 ==

== ENCOUNTER → 2023-11-14 13:47 | Outpatient (BNVA) | payer MEDICARE, SELFPAY | PROVIDERS: PCP Family Medicine; Referring Provider Family Medicine; Visit Provider Nurse Practitioner Gerontology | DX: R39.15 Urgency of urination (principal); R30.0 Dysuria; N39.0 Urinary tract infection, site not specified | CPT/HCPCS: 99442 ==

== ENCOUNTER → 2024-01-18 11:20 | Outpatient (BNVA) | payer MEDICARE, SELFPAY | PROVIDERS: PCP Nurse Practitioner Family; Visit Provider Nurse Practitioner Gerontology | DX: R39.15 Urgency of urination (principal); Z87.440 Personal history of urinary (tract) infections | CPT/HCPCS: 81003; 99213 ==

== ENCOUNTER → 2024-02-06 12:43 | Outpatient (BNVA) | payer MEDICARE, SELFPAY | PROVIDERS: PCP Nurse Practitioner Family; Referring Provider Family Medicine; Visit Provider Physician Assistant Surgical | DX: J98.4 Other disorders of lung (principal) | CPT/HCPCS: 99214 ==

== ENCOUNTER 2025-02-05 01:52 | Outpatient (CLI) | payer MEDICARE, SELFPAY ==
--- NOTE | 2025-02-05 07:15 | DI.RAD_ITS ---
Exam(s) XR FOOT RT COMPLETE EXAM: XR FOOT RT COMPLETE CLINICAL HISTORY: Right foot/toe pain,M79.671. TECHNIQUE: 2D digital imaging was performed. COMPARISON: No exams were available for comparison FINDINGS: 3 views There is diffuse age-related osteopenia of the bones of the foot and ankle. No evidence of acute fracture or diastasis of the Lisfranc joint. There is moderate degenerative change in the great toe metatarsophalangeal joint. Hammertoe deformities noted. Inferior calcaneal spur noted. No pes planus. IMPRESSION: No acute osseous findings. Degenerative changes in the great toe metatarsophalangeal joint. Generalized osteopenia. DATA REPOSITORY: RADIATION DOSE DELIVERED:
--- NOTE | 2025-02-05 11:45 | DI.RAD_ITS ---
Exam(s) XR FOOT LT COMPLETE EXAM: XR FOOT LT COMPLETE CLINICAL HISTORY: pain lt foot, M79.672. TECHNIQUE: 2D digital imaging was performed. COMPARISON: CR XR FOOT RT COMPLETE from 02/05/2025 FINDINGS: 3 views There is generalized age-related osteopenia in the bones of the foot. No evidence of fracture or diastasis of the Lisfranc joint. There is some flattening of the head of the 2nd metatarsal which is possibly related to an element of Freiberg's infraction. Other metatarsal heads appear unremarkable. There are minimal degenerative changes in the great toe metatarsophalangeal joint and there is no evidence of hallux valgus. Mild d egenerative changes at the tarsometatarsal joints. There is a small inferior calcaneal spur noted. There is no calcification in the plantar fascia IMPRESSION: There is some focal flattening of the head of the 2nd metatarsal. 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 No fractures evident. There is generalized osteopenia in the foot, similar to the opposite side. DATA REPOSITORY: RADIATION DOSE DELIVERED:
== END 2025-02-05 02:12 ==
PROVIDERS: PCP Nurse Practitioner Family; Visit Provider Podiatrist
DX: M79.671 Pain in right foot (principal); M79.672 Pain in left foot; L60.0 Ingrowing nail; M20.42 Other hammer toe(s) (acquired), left foot; M20.41 Other hammer toe(s) (acquired), right foot
CPT/HCPCS: 11730; 99213; 73630